=== PATIENT | female | born 1970 | race Caucasian/White ===

== ENCOUNTER 2017-05-05 23:56 | Emergency (ER) | payer BC ==
[2017-05-06 00:18] VITALS: BP 129/88
--- NOTE | 2017-05-06 00:53 | EDM.PDOC ---
ED HPI GENERAL MEDICAL PROBLEM - General Chief Complaint: Skin Complaint Stated Complaint: POSS CYST ON HAND Time Seen by Provider: 05/05/17 23:58 Source of Information: Reports: Patient History Limitations: Reports: No Limitations - History of Present Illness INITIAL COMMENTS - FREE TEXT/NARRATIVE: This is a 46-year-old female. She bumped her hand at work and now she developed a cyst like structure on her first metacarpal base on the dorsal hand. She noted that his developed a little pustule and she apparently was able to squeeze some white stuff out of it but now is erythema and there is a small red streak running up her hand. 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: - Past Surgical History GI Surgical History: Reports: Appendectomy Female Surgical History: Reports: Section Musculoskeletal Surgical History: Reports: Arthroscopic Knee Social & Family History - Family History Family Medical History: Noncontributory - Tobacco Use Smoking Status *Q: Current Every Day Smoker Years of Tobacco use: 32 Packs/Tins Daily: 0.5 - Recreational Drug Use Recreational Drug Use: No ED ROS GENERAL - Review of Systems Review Of Systems: See Below Constitutional: Denies: Fever, Chills HEENT: Reports: No Symptoms Respiratory: Reports: No Symptoms Cardiovascular: Reports: No Symptoms Endocrine: Reports: No Symptoms GI/Abdominal: Reports: No Symptoms : Reports: No Symptoms Musculoskeletal: Reports: Other (As per history of present illness) Skin: Reports: Other (As per history of present illness) Neurological: Reports: No Symptoms Psychiatric: Reports: No Symptoms Hematologic/Lymphatic: Reports: No Symptoms ED EXAM, SKIN/RASH Exam: See Below Exam Limited By: No Limitations General Appearance: Alert, WD/WN, No Apparent Distress Eye Exam: Bilateral Eye: Normal Inspection Ears: Normal External Exam Nose: Normal Inspection Throat/Mouth: Normal Inspection, Normal Lips, Normal Voice, No Airway Compromise Head: Normocephalic Neck: Supple Respiratory/Chest: No Respiratory Distress Back Exam: Full Range of Motion Extremities: Other (Right hand there is about a centimeter size raised area erythematous that is very rubbery and there is no fluctuance though there is a small pustule on top, and there is a small red streak starting up about a centimeter away from that infected nodule) Neurological: Alert, Oriented Psychiatric: Normal Affect, Normal Mood Skin: Warm, Dry Location, Skin: Upper Extremity, Right Characteristics: Erythematous Associated features: Warmth, Tenderness, Swelling, Induration Course - Vital Signs Last Recorded V/S: Last Vital Signs Temp 98.0 F 05/06/17 00:13 Pulse 95 05/06/17 00:13 Resp 16 05/06/17 00:13 BP 129/88 05/06/17 00:13 Pulse Ox 98 05/06/17 00:13 - Re-Assessments/Exams Free Text/Narrative Re-Assessment/Exam: 05/06/17 00:51 I spoke to the patient that this is not something he would want open at this time since it does not appear to be an abscess more of a pustule with a cellulitis and a small red streak starting in that right hand. 05/06/17 00:59 The patient develops a rash from penicillin but no anaphylaxis. I explained to her the Johnie was a distant cousin to penicillin should not be a problem as far as having a reaction but just to be careful. Departure - Departure Time of Disposition: 00:51 Disposition: Home, Self-Care 01 Condition: Good Clinical Impression: Cellulitis of right hand excluding fingers and thumb, Pustule - Discharge Information Prescriptions: Cephalexin [Keflex] 500 mg PO TID #21 cap Referrals: PCP,None [Primary Care Provider] - Forms: ED Department Discharge Additional Instructions: As soon as you get the antibiotics start taking them 3 times a day, do not push on that little bump or squeeze it because it'll make the infection worse, if despite taking the antibiotics the red streak going away from the bump continues to go up your arm you need to be seen right, follow-up with your family doctor this week for recheck or return to the ER
== END 2017-05-06 01:10 | disposition home or self-care (01) ==
LOC: JD.ED 23:56
DX: L03.113 Cellulitis of right upper limb (principal); F17.210 Nicotine dependence, cigarettes, uncomplicated; Z79.899 Other long term (current) drug therapy; Z88.0 Allergy status to penicillin
CPT/HCPCS: 99283

== ENCOUNTER 2017-10-14 14:29 | Emergency (ER) | payer BC ==
[2017-10-14] MEDS ORDERED: Acetaminophen/HYDROcodone 325-5 MG Tab PO ONE (14:39)
[2017-10-14 14:48] VITALS: BP 100/60
--- NOTE | 2017-10-14 14:54 | EDM.PDOC ---
ED HPI GENERAL MEDICAL PROBLEM - General Chief Complaint: Trauma Stated Complaint: FELL OFF 10 FT LADDER/LANDED ON BACKSIDE Time Seen by Provider: 10/14/17 14:29 Source of Information: Reports: Patient, Other (Friend) History Limitations: Reports: No Limitations - History of Present Illness INITIAL COMMENTS - FREE TEXT/NARRATIVE: A trauma alert was called on this patient. The patient presents to the ED after falling about 10 feet off a ladder onto hard dirt, onto her buttocks, around 14:30. She states that she was picking fruit, the latter was falling, and she jumped off. She complains of pain to her lower back, but not her buttocks. The pain does not radiate. She is otherwise uninjured. The patient's PCP is Dr. Chappell. 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: - Past Surgical History HEENT Surgical History: Reports: Oral Surgery (wisdom teeth extraction) GI Surgical History: Reports: Appendectomy Female Surgical History: Reports: Section (x 1), Hysterectomy, Salpingo-Oophorectomy Musculoskeletal Surgical History: Reports: Arthroscopic Knee (right) Social & Family History - Family History Family Medical History: Noncontributory - Tobacco Use Years of Tobacco use: 32 Packs/Tins Daily: 0.8 Packs/Tins Daily Comment: Down from 1 ppd - Alcohol Use Alcohol Use History: Yes Alcohol Use Frequency: Socially - Recreational Drug Use Recreational Drug Use: No - Living Situation & Occupation Living situation: Reports: , with Significant Other (Boyfriend) Occupation: Employed ([employer]) Review of Systems - Review of Systems Review Of Systems: ROS reveals no pertinent complaints other than HPI. ED EXAM, GENERAL - Physical Exam Exam: See Below Exam Limited By: No Limitations General Appearance: Alert, WD/WN, Mild Distress (Appears uncomfortable) Eye Exam: Bilateral Eye: EOMI, Normal Inspection Ears: Normal External Exam, Hearing Grossly Normal Nose: Normal Inspection, No Blood Throat/Mouth: Normal Inspection, Normal Lips, Normal Voice, No Airway Compromise Head: Atraumatic, Normocephalic Neck: Normal Inspection, Full Range of Motion Respiratory/Chest: No Respiratory Distress, Lungs Clear, Normal Breath Sounds, No Accessory Muscle Use Cardiovascular: Normal Peripheral Pulses, Regular Rate, Rhythm, No Edema, No Gallop, No JVD, No Murmur, No Rub Peripheral Pulses: 4+: Radial (L), Radial (R) GI/Abdominal: Normal Bowel Sounds, Soft, Non-Tender, No Organomegaly, No Distention, No Abnormal Bruit, No Mass (Female) Exam: Deferred Rectal (Female) Exam: Deferred Back Exam: Other (No visible abnormality to the back or buttocks, such as swelling, erythema, ecchymosis or abrasion. No tenderness to palpation of the vertebral spinous processes, sacrum, or coccyx. No tenderness to palpation of the paraspinous muscles. No tenderness to palpation over either SI joint.) Extremities: Normal Inspection, Normal Range of Motion, Non-Tender, Normal Capillary Refill, No Pedal Edema Neurological: Alert, Oriented, Normal Cognition, No Motor/Sensory Deficits Psychiatric: Normal Affect Skin Exam: Warm, Dry, Intact, Normal Color, No Rash Course - Vital Signs Last Recorded V/S: Last Vital Signs Temp 36.9 C 10/14/17 14:39 Pulse 80 10/14/17 14:39 Resp 18 10/14/17 14:39 BP 100/60 10/14/17 14:39 Pulse Ox 96 10/14/17 14:39 - Orders/Labs/Meds Orders: Active Orders 24 hr Category Date Time Status Lumbar Spine 2 or 3V [CR] Stat Exams 10/14/17 14:40 Taken Sacrum Coccyx Min 2V [CR] Stat Exams 10/14/17 14:41 Taken UA W/MICROSCOPIC [URIN] Stat Lab 10/14/17 15:15 Ordered Labs: Laboratory Tests 10/14/17 Range/Units 15:15 Urine Color Yellow (Yellow) Urine Appearance Clear (Clear) Urine pH 5.5 (5.0-8.0) Ur Specific [place] > or = 1.030 (1.005-1.030) Urine Protein Trace H (Negative) Urine Glucose (UA) Negative (Negative) Urine Ketones Negative (Negative) Urine Occult Blood Negative (Negative) Urine Nitrite Negative (Negative) Urine Bilirubin Negative (Negative) Urine Urobilinogen 0.2 (0.2-1.0) Ur Leukocyte Esterase Negative (Negative) Urine RBC Not seen (0-5) /hpf Urine WBC 0-5 (0-5) /hpf Ur Epithelial Cells 0-5 (0-5) /hpf Urine Bacteria Rare (FEW) /hpf Urine Mucus Few (FEW) /hpf Meds: Medications Discontinued Medications Generic Name Dose Route Start Last Admin Trade Name Freq PRN Reason Stop Dose Admin Hydrocodone Bitart/Acetaminophen 2 tab 10/14/17 14:39 10/14/17 15:05 [place] 325-5 Mg PO 10/14/17 14:40 2 tab ONETIME ONE Administration - Re-Assessments/Exams Free Text/Narrative Re-Assessment/Exam: 10/14/17 14:48 2-view radiographs of the lumbar spine appear to be normal. No fracture, subluxation, or loss of disc height noted. Formal read per the Radiologist pending. 3-view radiographs of the sacrum and coccyx appear to demonstrate a coccygeal fracture, age unknown. No other acute injuries seen. Formal read per the Radiologist pending. 10/14/17 15:41 Test results discussed with the patient and her friend. As above, the x-rays are negative. The patient confirms that she broke her coccyx when she was 21 years old. Her urinalysis is negative for blood. I will discharge her home with a prescription for tramadol, and I would like her to take ibuprofen on a regular basis. Departure - Departure Time of Disposition: 15:42 Disposition: Home, Self-Care 01 Condition: Good Clinical Impression: Fall from ladder, Contusion of buttock - Discharge Information *PRESCRIPTION DRUG MONITORING PROGRAM REVIEWED*: Not Applicable *COPY OF PRESCRIPTION DRUG MONITORING REPORT IN PATIENT YURI: Not Applicable Prescriptions: traMADol [Ultram] 1 tab PO Q6H PRN #10 tab PRN Reason: Pain (Severe 7-10) Instructions: Contusion, [id number] Referrals: Rodney Chappell MD [Primary Care Provider] - Forms: ED Department Discharge Additional Instructions: You were seen in the emergency room after falling off a ladder onto your buttocks. Workup in the ER included x-rays of your lumbar spine, your sacrum and coccyx, and a urinalysis. Your entire workup was unremarkable. No fractures were seen, other than your old tailbone fracture. Take [id number] ibuprofen, 2-3 tablets (400-600 mg) every 8 hours, with food, [id number]. You may take one tablet of the opioid pain reliever tramadol up to every 6 hours , as needed for pain not relieved by ibuprofen. If you take tramadol, do not drive or operate heavy machinery for 10 hours afterwards. Tramadol will likely cause constipation, so consider taking a stool softener. Is very important that you stay active. Swimming is best, but walking is good, as well. Do not just lie in bed. Follow-up with your PCP, Dr. Chappell, as needed. If any other problems, please do not hesitate to return to the ER. - My Orders Last 24 Hours: My Active Orders 10/14/17 14:40 Lumbar Spine 2 or 3V [CR] Stat 10/14/17 14:41 Sacrum Coccyx Min 2V [CR] Stat 10/14/17 15:15 UA W/MICROSCOPIC [URIN] Stat - Assessment/Plan Last 24 Hours: My Active Orders 10/14/17 14:40 Lumbar Spine 2 or 3V [CR] Stat 10/14/17 14:41 Sacrum Coccyx Min 2V [CR] Stat 10/14/17 15:15 UA W/MICROSCOPIC [URIN] Stat
== END 2017-10-14 15:58 | disposition home or self-care (01) ==
LOC: SUPCPDRO 14:29 → JD.ED 14:29
DX: S30.0XXA Contusion of lower back and pelvis, initial encounter (principal); W11.XXXA Fall on and from ladder, initial encounter; Z88.0 Allergy status to penicillin
CPT/HCPCS: 72100; 72220; 81001; 99284; A9270

== ENCOUNTER 2018-05-07 17:22 | Emergency (ER) | payer OTHER, BC ==
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
[2018-05-07] MEDS ORDERED: Acetaminophen/oxyCODONE 325-5 MG Tab PO ONE (18:53)
[2018-05-07] MEDS ORDERED: Ibuprofen 600 MG Tab PO ONE (18:53)
[2018-05-07] MEDS ORDERED: Ibuprofen 600 MG Tab ONE (18:59)
[2018-05-07 19:40] VITALS: BP 124/70
--- NOTE | 2018-05-08 08:40 | CR ---
Right ankle: Four views of the right ankle were obtained. Oblique view shows a fracture within the posterior talus which is not seen on the other views but is felt to be real. Plantar spur is noted. Soft tissue swelling is seen. Small césar of bone is noted off the medial malleolus possibly due to minimal avulsion injury. No additional abnormality is seen. Impression: 1. Findings felt compatible with fracture within the posterior talus. 2. Other findings as described above. Diagnostic code #3
== END 2018-05-07 19:30 | disposition home or self-care (01) ==
LOC: JD.ED 17:22
DX: S92.134A Nondisplaced fracture of posterior process of right talus, initial encounter for closed fracture (principal); S80.12XA Contusion of left lower leg, initial encounter; Z88.0 Allergy status to penicillin; Z90.49 Acquired absence of other specified parts of digestive tract; Z90.710 Acquired absence of both cervix and uterus; F17.210 Nicotine dependence, cigarettes, uncomplicated; V59.40XA Driver of pick-up truck or van injured in collision with unspecified motor vehicles in traffic accident, initial encounter
CPT/HCPCS: 29515; 73610; 99284; A9270; 99283

== ENCOUNTER 2018-05-09 19:06 | Emergency (ER) | payer OTHER, BC ==
[2018-05-09 19:17] VITALS: BP 127/73
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
== END 2018-05-09 20:04 | disposition home or self-care (01) ==
LOC: JD.ED 19:06
DX: S99.911A Unspecified injury of right ankle, initial encounter (principal); F17.210 Nicotine dependence, cigarettes, uncomplicated; V49.9XXA Car occupant (driver) (passenger) injured in unspecified traffic accident, initial encounter
CPT/HCPCS: 29515; 99282; 99282-25